=== PATIENT | male | born 1980 | race Caucasian/White ===

== ENCOUNTER 2016-11-25 19:00 | Emergency (ER) | payer MEDICAID ==
[~2016-11-25] VITALS: Ht 175.3 cm; Wt 65.9 kg
[2016-11-25 19:15] VITALS: BP 143/85; PULSE 78; RESP 16; O2SAT 98
--- NOTE | 2016-11-25 21:13 | ED.REPORT ---
HPI-Headache Date of Service November 25, 2016 ED Provider: Jesse Mccormack MD The patient is an otherwise healthy 36 year old male who presents to the ED due to a constant headache for the past few days. Associated symptoms include vomiting, slight productive cough, dizziness and body aches. He denies fever, trauma, vision loss, and loss of extremity function. He has had one severe headache previously, but this is far worse. Pt is a smoker. His father has a hx of migraines. Nursing Notes Stated Complaint: HEADACHE, DIZZINESS Chief Complaint: Headache Nursing Notes Reviewed: Yes Allergies: Coded Allergies: No Known Allergies (Unverified , 11/25/16) Scheduled PRN Prochlorperazine Maleate (Prochlorperazine Suppository) 25 Mg Supp.rect 25 MG RC Q8 PRN PRN For Nausea/Vomiting General Time Seen by MD: 21:13 Chief Complaint Headache Hx Obtained From: Patient Arrived By: Walk-in Sudden in Onset?: Yes Onset Occurred: 3 days ago Symptom Duration: Since onset Location: : Generalized Quality: Painful Severity: Current: Moderate Associated with: Reports: Vomiting Pertinent Negative: Pt denies other symptoms Recent Healthcare: No recent doctor visit, No recent hospitalization Similar Sx Previous: No Past Medical History Past Medical History denies Past Surgical History father has migraines Smoking History Current Every Day Smoker Social History Other Social History: Local resident Ambulatory Status Independent Review of Systems Review of Systems Note: denies fever, trauma, vision loss, loss of extremity function Constitutional: Reports: Malaise, Denies: Fever Eyes: Denies: Visual loss bilateral GI: Reports: Vomiting Musculoskeletal: Denies: Extremity pain, Extremity swelling Neurologic: Reports: Dizziness Complete sys rev & neg: except as marked. Respiratory: Reports: Prod cough, clear Physical Exam Initial Vital Signs Vital Signs (First) Date Time Temp Pulse Resp B/P Pulse Ox O2 Delivery O2 Flow Rate FiO2 11/25/16 19:15 36.8 78 16 143/85 98 Room Air Initial VS: Reviewed ENT: Mucous membranes moist, Conjunctiva normal Respiratory: Breath sounds normal, Clear to auscultation, No respiratory distress Cardiovascular: Regular rate & rhythm, Heart sounds normal, Intact distal pulses Abdomen / GI: Soft, Non-tender, No guarding, No rebound Back: No CVA tenderness Lymphatic: No lymphadenopathy Extremities: Vascular intact, Neuro intact, No swelling Skin: Warm, Dry General/Constitutional: Awake, Alert, No acute distress, Cooperative Head / Eyes: Atraumatic, Normocephalic, PERRL, EOMI Neck: Atraumatic, Supple, No meningismus Neurologic: Oriented X3, Speech NL, No motor deficits, No sensory deficits, Reflexes equal bilat, Cerebellar NL, Memory NL, Gait NL Interpretation & Diagnostics Lab Results Interpretation Result Diagram: 11/25/16 2141 11/25/16 2141 Test 11/25/16 21:15 11/25/16 21:41 Hold Urine Received (Received) Urine Opiates Screen Negative Urine Methadone Screen Negative Urine Barbiturates Screen Negative Urine Amphetamines Screen Negative Urine Benzodiazepines Screen Negative Urine Cocaine Metabolite Screen Negative Urine Cannabinoids Screen Positive White Blood Count 11.3th/mm3 (3.8-10.1) Red Blood Count 5.16mil/mm3 (4.40-5.80) Hemoglobin 14.5g/dL (13.8-17.2) Hematocrit 42.0% (41.0-50.0) Mean Corpuscular Volume 81.4fL (81-100) Mean Corpuscular Hemoglobin 28.1pg (27.0-35.0) Mean Corpuscular Hemoglobin Concent 34.5% (32.0-37.0) Red Cell Distribution Width 13.1% (12.3-15.4) Platelet Count 223bil/L (150-400) Neutrophils (%) (Auto) 68.3% (40-74) Lymphocytes (%) (Auto) 20.1% (14-46) Monocytes (%) (Auto) 10.6% (4-12) Eosinophils (%) (Auto) 0.4% (0-5) Basophils (%) (Auto) 0.3% (0-3) Erythrocyte Sedimentation Rate 8mm/hr (0-15) Sodium Level 135mEq/L (134-144) Potassium Level 4.1mEq/L (3.5-5.2) Chloride Level 97mEq/L (97-108) Carbon Dioxide Level 24mmol/L (18-29) Blood Urea Nitrogen 14mg/dL (6-20) Creatinine 0.78mg/dL (0.76-1.27) Estimat Glomerular Filtration Rate 121mL/min (>59) Glucose Level 107mg/dL (60-99) Calcium Level 10.1mg/dL (8.5-10.1) Total Bilirubin 0.6mg/dL (0.0-1.2) Aspartate Amino Transf (AST/SGOT) 41U/L (0-50) Alanine Aminotransferase (ALT/SGPT) 25U/L (0-44) Alkaline Phosphatase 43U/L (25-150) Total Protein 8.0g/dL (6.4-8.4) Albumin 4.4g/dL (3.4-5.0) CT Head Interpretation Conclusion: Normal exam. No acute intracranial abnormality. Radiologist: Wendi Joseph M.D. Study: Head CT no contrast Interpretation / Wet Read by: Interpret - Radiologist Re-Eval/Medical Decision Med Decision/Clinical Course 36-year-old presents with a several day headache that is apparently migrainous in character. No prior evaluation for same. Negative CT scan and negative neuro exam. Improved with standard migraine cocktail. Discharged home in stable condition. Counseled Regarding: Diagnosis, Lab results, Need for follow-up, When/why to return to ED Discharge & Departure Impression: Primary Impression: Headache Disposition: Home Discharge Condition All VS Reviewed: Yes Condition: Stable Additional Instructions: Your head CT was unremarkable. I recommend Tylenol migraine and Ibuprofen migraine as needed for pain. If you need additional medicine for this type of headache, a Compazine suppository can be very helpful both for nausea and for headache Follow up with your primary care physician as needed. Return to the Emergency Department for any new or worsening symptoms. I hope you feel better soon! Referrals: OTHER,PHYSICIAN (PCP) [facility] Scribe Attestation Portion of this note were transcribed by Tammy Huffman. I, Dr. Jesse Mccormack, personally performed the history, physical exam, and medical decision- making: I reviewed and confirmed the accuracy for the information in the transcribed note. Signed by: deepika David, 11/25/16 2300 copies to: [facility] Jesse Mccormack MD November 25, 2016 21:13 Tammy Huffman November 25, 2016 21:21
[2016-11-25] MEDS ORDERED: 0.9% Sodium Chloride 1,000 ML IV ONE (21:17)
[2016-11-25] MEDS ORDERED: Haloperidol 5 mg/mL Inj IVPUSH ONE (21:20)
[2016-11-25] MEDS ORDERED: Ondansetron 2 mg/mL 2 mL Inj IVPUSH ONE (21:20)
[2016-11-25] MEDS ORDERED: Dexamethasone 10 mg/mL Inj IVPUSH ONE (21:20)
[2016-11-25 22:03] LABS: BASOPHILS % (AUTO) 0.3 % (0-3); EOSINOPHILS % (AUTO) 0.4 % (0-5); MONOCYTES % (AUTO) 10.6 % (4-12); Mean Corpuscular Hemoglobin 28.1 pg (27.0-35.0); Mean Corpuscular Volume 81.4 fL (81-100); NEUTROPHILS % (AUTO) 68.3 % (40-74); Platelet Count 223 bil/L (150-400)
[2016-11-25 22:28] LABS: ERYTHROCYTE SEDIMENTATION RATE 8 mm/hr (0-15)
[2016-11-25] MEDS ORDERED: PROC25SU3 RC (23:39)
[2016-11-26 00:15] VITALS: BP 130/79; PULSE 75; RESP 16; O2SAT 98
--- NOTE | 2016-11-26 11:01 | DRSVH ---
PROCEDURE: CT BRAIN WITHOUT CONTRAST ([id number]) INDICATIONS: gao 3 days TECHNIQUE: Noncontrast 4.5 mm thick angled axial sections acquired from the foramen magnum to the vertex, with c oronal reformats. COMPARISON: [facility], CT, BRAIN W/O CONTRAST, 10/24/2011, 18:53. FINDINGS: Image quality: Excellent. CSF spaces: Basal cisterns are patent. No extra-axial fluid collections. Ventricles are normal in size and shape. Brain: No midline shift. No intracranial masses or hemorrhage. [place]-white matter interface is norm al. Skull and face: Calvarium and visualized facial bones are intact, without suspicious lesions. Sinuses: Visualized sinuses and mastoids are clear. IMPRESSION: 1. No acute intracranial process. Dictated by: Candace Carlson M.D. on 11/26/2016 at 10:59 Approved by: Candace Carlson M.D. on 11/26/2016 at 10:59
== END 2016-11-26 00:17 | disposition home or self-care (01) ==
LOC: SED 19:00
DX: R51 Headache (principal); F17.200 Nicotine dependence, unspecified, uncomplicated
CPT/HCPCS: 36415; 70450; 80053; 81002; 85025; 85651; 96361; 96374; 96375; 99285; G0480; J1100; J1200; J1630; J1885; J2405; J7030